=== PATIENT | male | born 1960 | race Caucasian/White ===

== ENCOUNTER 2018-01-21 06:34 | Emergency (ER) | payer OTHER ==
--- NOTE | 2018-01-21 06:48 | PHYS DOC ---
Past History Past Medical History: Hypotension Smoking: Non-smoker Adult General Chief Complaint Chief Complaint: left flank pain HPI HPI 57-year-old male patient brought in by EMS because of left flank pain. Patient states he has had hematuria with pinkish urine color for more than one month and seen the hospital in [place] at his home and CT of abdomen and pelvis showed he had left kidney stone. Patient states he plans to have cystoscopy after returning home. Patient states he woke up with sudden onset of left flank pain since 3 AM as a constant sharp pain without radiation. Patient complaining of nausea without diarrhea, chest pain, shortness of breath, fever and chills, recent dehydration. Patient denies new change in the color of his urine. Review of Systems Review of Systems Constitutional: Denies fever or chills [] Eyes: Denies change in visual acuity, redness, or eye pain [] HENT: Denies nasal congestion or sore throat [] Respiratory: Denies cough or shortness of breath [] Cardiovascular: No additional information not addressed in HPI [] GI: Denies abdominal pain, vomiting, bloody stools or diarrhea, reports nausea [ ] : Denies dysuria, reports left flank pain and hematuria [] Musculoskeletal: Denies back pain or joint pain [] Integument: Denies rash or skin lesions [] Neurologic: Denies headache, focal weakness or sensory changes [] Endocrine: Denies polyuria or polydipsia [] All other systems were reviewed and found to be within normal limits, except as documented in this note. Current Medications Current Medications Current Medications Medications (Trade) Dose Ordered Sig/Veronica Start Time Stop Time Status Last Admin Dose Admin Morphine Sulfate (Morphine 4mg Syringe) 4 mg 1X ONCE 01/21/18 06:45 01/21/18 06:46 UNV Ondansetron HCl (Zofran) 4 mg 1X ONCE 01/21/18 06:45 01/21/18 06:46 UNV Sodium Chloride (Normal Saline Flush) 10 ml QSHIFT PRN 01/21/18 06:45 UNV Physical Exam Physical Exam Constitutional: Well developed, well nourished, moderate distress, non-toxic appearance. [] HENT: Normocephalic, atraumatic, oropharynx moist. [] Eyes: PERRLA, EOMI, conjunctiva normal, no discharge. [] Neck: Normal range of motion, no tenderness, supple, no stridor. [] Cardiovascular:Heart rate regular rhythm, no murmur [] Lungs & Thorax: Bilateral breath sounds clear to auscultation [] Abdomen: Bowel sounds normal, soft, no tenderness, no masses, no pulsatile masses, left flank tenderness. [] Skin: Warm, dry, no erythema, no rash. [] Back: No tenderness, left CVA tenderness. [] Extremities: No tenderness, no cyanosis, no clubbing, ROM intact, no edema. [] Neurologic: Alert and oriented X 3, normal motor function, normal sensory function, no focal deficits noted. [] Psychologic: Affect normal, judgement normal, mood normal. [] EKG EKG [] Radiology/Procedures Radiology/Procedures [][address] [address] IMAGING REPORT Signed PATIENT: MATHEUS ARREDONDO ACCOUNT: [id number] : 1960 LOCATION: ER AGE: 57 SEX: M EXAM STATUS: REG ER ORD. PHYSICIAN: RAMÓN SANCHEZ MD REASON: left flank pain PROCEDURE: CT ABDOMEN PELVIS WO CONTRAST PQRS Compliance Statement: One or more of the following individualized dose reduction techniques were utilized for this examination: 1. Automated exposure control 2. Adjustment of the mA and/or kV according to patient size 3. Use of iterative reconstruction technique CT abdomen/pelvis without contrast 01/21/2018 7:25 AM INDICATION: Severe left flank pain. Hematuria COMPARISON: None available TECHNIQUE: Multiple axial CT images of the abdomen and pelvis were obtained without intravenous contrast. Coronal and sagittal reformats are provided. FINDINGS: Lung bases are clear. Heart size is within normal limits. Evaluation of the solid abdominal viscera is limited by lack of intravenous contrast. The liver, spleen and gallbladder are normal in appearance. Minimal fusiform thickening of the adrenal glands may be secondary to adenomatous hyperplasia. There is mild fatty atrophy of the pancreas. Ill-definition of the body of the pancreas may be secondary to inflammation versus motion artifact. The abdominal aorta is normal in course and caliber. There are no pathologically enlarged lymph nodes in the abdomen and pelvis. There is no abdominal free fluid. There is no free intraperitoneal air. There is a 7 mm calculus at the left ureteropelvic junction with associated mild left hydronephrosis. No additional renal calculi are visualized. There is no right-sided hydronephrosis. No suspicious renal mass is visualized. Small and large bowel are normal in caliber. There is no evidence for bowel obstruction. There are no pericolonic inflammatory changes. A normal, nondilated appendix is visualized without adjacent inflammatory changes. Mild sigmoid diverticulosis is noted. Urinary bladder is within normal limits. No suspicious pelvic mass is visualized. Prostate and seminal vesicles appear normal. No suspicious osseous lesion is identified. IMPRESSION: 1. There is a 7 mm calculus at the left ureteropelvic junction with associated mild left hydronephrosis. 2. There is mild fatty atrophy of the pancreas with ill definition of the body of the pancreas which may be secondary to inflammation versus motion artifact. Correlate with pancreatic enzymes. No free fluid is noted within the abdomen. 3. Mild fusiform thickening of the adrenal glands may be secondary to adenomatous hyperplasia. No discrete nodule is visualized. Electronically signed by: Mohsen Braun MD (01/21/2018 8:13 AM) [facility] DICTATED AND SIGNED BY: MOHSEN BRAUN MD DATE: 01/21/18 0807 CC: RAMÓN SANCHEZ MD; PCP,NO ~ Course & Med Decision Making Course & Med Decision Making Pertinent Labs and Imaging studies reviewed. (See chart for details) Evaluation of patient in ER showed 57-year-old male patient with history of marked hematuria for more than one month and left flank pain since 3 AM. Patient had 7 mm stone in left UP junction with mild hydronephrosis.. Patient with the treatment in ER including IV fluids, Zofran, morphine and Toradol. Patient traveling from [place] and instructed to postpone his trip and follow with on-call urologist and increase fluid intake and strain all of his urine. [] Dragon Disclaimer Dragon Disclaimer This electronic medical record was generated, in whole or in part, using a voice recognition dictation system. Departure Departure: Impression: Primary Impression: Renal colic on left side Additional Impressions: Ureterolithiasis Hematuria Disposition: HOME, SELF-CARE (At 0830) Condition: IMPROVED Referrals: PCP,NAIF (PCP) YG CARPIO Patient Instructions: Diet for Kidney Stones, Kidney Stones Additional Instructions: Drink plenty of liquids Follow-up with urology physician in one or 2 day Return to ER if not getting better Strain all of your urine Scripts Ibuprofen (IBUPROFEN) 800 Mg Tablet 1 TAB PO TID, #30 TAB Prov: RAMÓN SANCHEZ MD 01/21/18 Hydrocodone Bit/Acetaminophen (NORCO 5-325 TABLET) 1 Each Tablet 1 TAB PO PRN Q6HRS PRN for PAIN, #14 TAB 0 Refills Prov: RAMÓN SANCHEZ MD 01/21/18 Ondansetron (ZOFRAN ODT) 4 Mg Tab.rapdis 1 TAB SL Q8HRS, #15 TAB Prov: RAMÓN SANCHEZ MD 01/21/18 Tamsulosin Hcl (FLOMAX) 0.4 Mg Cap.er.24h 1 CAP PO DAILY, #30 CAP 11 Refills Prov: RAMÓN SANCHEZ MD 01/21/18 Problem Qualifiers RAMÓN SANCHEZ MD Jan 21, 2018 06:48
[2018-01-21 06:56] LABS: BASO % 1 % (0-3); EOS # 0.1 x10^3/uL (0.0-0.7); EOS % 2 % (0-3); HEMATOCRIT 42.9 % (39.0-53.0); HEMOGLOBIN 15.2 g/dL (13.0-17.5); LYMPH # 1.1 x10^3/uL (1.0-4.8); LYMPH % 20 % (24-48); MEAN CORPUSCULAR HEMOGLOBIN 33 pg (25-35); MEAN CORPUSCULAR HGB CONC 35 g/dL (31-37); MEAN CORPUSCULAR VOLUME 92 fL (79-100); MONO # 0.3 x10^3/uL (0.0-1.1); MONO % 5 % (0-9); NEUT # 3.8 x10^3uL (1.8-7.7); NEUT % 72 % (31-73); PLATELET COUNT 170 x10^3/uL (140-400); RED BLOOD COUNT 4.66 x10^6/uL (4.30-5.70); RED CELL DISTRIBUTION WIDTH 12.4 % (11.5-14.5); WHITE BLOOD COUNT 5.3 x10^3/uL (4.0-11.0)
[2018-01-21] MEDS: IV NORMAL SALINE 1,000ML 1,000 ML IV SCH (06:59)
[2018-01-21] MEDS: ONDANSETRON PF 4 MG/2 ML VIAL. IV ONE (07:00)
[2018-01-21] MEDS: MORPHINE SULFATE 4 MG/ML DISP.SYRIN. IV ONE (07:00)
[2018-01-21 07:11] LABS: ALBUMIN 3.6 g/dL (3.4-5.0); ALBUMIN/GLOBULIN RATIO 1.1 (1.0-1.7); CALCIUM 8.7 mg/dL (8.5-10.1); CREATININE 1.1 mg/dL (0.7-1.3); GFR 68.8; POTASSIUM 3.7 mmol/L (3.5-5.1); TOTAL BILIRUBIN 1.3 mg/dL (0.2-1.0); TOTAL PROTEIN 6.9 g/dL (6.4-8.2)
[2018-01-21] MEDS: KETOROLAC 30 MG/ML VIAL. IV ONE (07:44)
[2018-01-21 07:57] LABS: BACTERIA,URINE 0 /HPF (0-FEW); BILIRUBIN,URINE NEG (NEG); CLARITY,URINE CLEAR; COLOR,URINE YELLOW; GLUCOSE,URINE NEG (NEG); NITRITE,URINE NEG (NEG); SQUAMOUS EPITHELIAL CELL,UR OCC /LPF; UROBILINOGEN,URINE 0.2 mg/dL (0.2 mg/dL); WBC,URINE RARE /HPF (0-4)
--- NOTE | 2018-01-21 08:17 | RAD ---
PQRS Compliance Statement: One or more of the following individualized dose reduction techniques were utilized for this examination: 1. Automated exposure control 2. Adjustment of the mA and/or kV according to patient size 3. Use of iterative reconstruction technique CT abdomen/pelvis without contrast 01/21/2018 7:25 AM INDICATION: Severe left flank pain. Hematuria COMPARISON: None available TECHNIQUE: Multiple axial CT images of the abdomen and pelvis were obtained without intravenous contrast. Coronal and sagittal reformats are provided. FINDINGS: Lung bases are clear. Heart size is within normal limits. Evaluation of the solid abdominal viscera is limited by lack of intravenous contrast. The liver, spleen and gallbladder are normal in appearance. Minimal fusiform thickening of the adrenal glands may be secondary to adenomatous hyperplasia. There is mild fatty atrophy of the pancreas. Ill-definition of the body of the pancreas may be secondary to inflammation versus motion artifact. The abdominal aorta is normal in course and caliber. There are no pathologically enlarged lymph nodes in the abdomen and pelvis. There is no abdominal free fluid. There is no free intraperitoneal air. There is a 7 mm calculus at the left ureteropelvic junction with associated mild left hydronephrosis. No additional renal calculi are visualized. There is no right-sided hydronephrosis. No suspicious renal mass is visualized. Small and large bowel are normal in caliber. There is no evidence for bowel obstruction. There are no pericolonic inflammatory changes. A normal, nondilated appendix is visualized without adjacent inflammatory changes. Mild sigmoid diverticulosis is noted. Urinary bladder is within normal limits. No suspicious pelvic mass is visualized. Prostate and seminal vesicles appear normal. No suspicious osseous lesion is identified. IMPRESSION: 1. There is a 7 mm calculus at the left ureteropelvic junction with associated mild left hydronephrosis. 2. There is mild fatty atrophy of the pancreas with ill definition of the body of the pancreas which may be secondary to inflammation versus motion artifact. Correlate with pancreatic enzymes. No free fluid is noted within the abdomen. 3. Mild fusiform thickening of the adrenal glands may be secondary to adenomatous hyperplasia. No discrete nodule is visualized. Electronically signed by: Soni Todd MD (01/21/2018 8:13 AM) [id number]
[2018-01-21 08:30] VITALS: BP 132/84
[2018-01-21] MEDS ORDERED: HYDR-971 PO (08:34)
[2018-01-21] MEDS ORDERED: ONDA4TAB10 SL (08:34)
[2018-01-21] MEDS ORDERED: IBUP800T19 PO (08:34)
[2018-01-21] MEDS ORDERED: TAMS0.4C97 PO (08:34)
[2018-01-21] MEDS: 0.9 % SODIUM CHLORIDE 10 ML DISP.SYRIN. IV PRN (08:38)
[2018-01-21] MEDS: TAMSULOSIN 0.4 MG CAP.ER.24H. PO ONE (08:38)
== END 2018-01-21 08:42 | disposition home or self-care (01) ==
LOC: ER 06:34
DX: N13.2 Hydronephrosis with renal and ureteral calculous obstruction (principal); R31.9 Hematuria, unspecified
CPT/HCPCS: 36415; 74176; 80053; 81001; 83690; 85025; 96374; 96375; 99285; J1885; J2270; J2405; 96361; J7030